=== PATIENT | female | born 1955 | race African-American/Black ===

== ENCOUNTER 2017-11-26 05:37 | Emergency (ER) | payer SELFPAY ==
[~2017-11-26] VITALS: Ht 162.6 cm; Wt 107.4 kg
[~2017-11-26 05:37] MED LIST: BACTRIM DS1 TAB PO; FLEXERIL10 MG PO; METRONIDAZOL500 MG PO; ULTRAM50 M1 PO; [UNRECOGNIZED DRUG - REMARK]
[2017-11-26 07:59] LABS: ALBUMIN 4.5 g/dL (3.2-5.0); ALKALINE PHOSPHATASE 75 u/l (38-126); ANION GAP 17 (6-22 (CALC)); BILIRUBIN, TOTAL 0.9 mg/dL (0.0-1.4); BUN 14 mg/dL (7-17); BUN/CREATININE RATIO 22 (12-20 (CALC)); CARBON DIOXIDE 26 mmol/l (22-30); CHLORIDE 107 mmol/l (95-108); CREATININE 0.6 mg/dL (0.5-1.0); GFR > 60 ML/MIN (>=60 (CALC)); GFR FOR AFR.AMER. > 60 ML/MIN (>=60 (CALC)); GLUCOSE 90 mg/dL (65-105); SGOT/AST 29 u/l (14-36); SGPT/ALT 25 u/l (9-52); SODIUM 145 mmol/l (137-146); TOTAL PROTEIN 8.2 g/dL (6.3-8.2)
[2017-11-26] MEDS ORDERED: MELOXICAM7.5 MG PO (08:11)
[2017-11-26 08:16] VITALS: BP 136/75
== END 2017-11-26 08:25 | disposition home or self-care (01) | DRG 556 ==
LOC: ED 05:37
PROVIDERS: Emergency Medicine
DX: M79.641 Pain in right hand (principal); F17.210 Nicotine dependence, cigarettes, uncomplicated; M79.642 Pain in left hand

== ENCOUNTER 2019-11-22 | Emergency (ER) | payer SELFPAY ==
[~2019-11-22] MED LIST changes: +MELOXICAM7.5 MG PO
== END 2019-11-22 09:33 | disposition left against medical advice (07) | DRG 556 ==
DX: M79.89 Other specified soft tissue disorders (principal); F17.210 Nicotine dependence, cigarettes, uncomplicated; Z91.19 Patient's noncompliance with other medical treatment and regimen